=== PATIENT | male | born 1950 | race Caucasian/White ===

== ENCOUNTER → 2016-10-10 | Outpatient (CLI) | payer BC, OTHER ==
[~2016-10-10] VITALS: Ht 190.5 cm; Wt 131.5 kg
[~2016-10-10] MED LIST: ALLEGRA ALLERG180 MG PO; ASPIR 8181 M1 PO; AVAPRO300 MG PO; BYETTA PEN 11 PENIN2 SUBQ; CO Q-10100 MG PO; COENZYME Q10 PO; DEMADEX20 MG PO; DIOVAN320 MG PO; ECONAZOLE NITRA85 GM TOP; ESTER-C 1,0001 EACH PO; FISH OIL 1,001000 M2 PO; FLOMAX0.4 MG PO; GLUCOPHAGE XR500 MG PO; GLUCOPHAGE1000 MG PO; K-DUR 20 MEQ T20 MEQ PO; MAXZIDE-25 MG1 EACH PO; METAMUCIL PAC1 UDPKT; MILK THISTLE200 M1 PO; OMEPRAZOLE20 MG PO; PRAVACHOL40 MG PO; PROSCAR 5MG TABL5 MG PO; RAPAFLO8 MG PO; ROSUVASTATIN CA20 MG PO; VERAPAMIL ER180 MG PO; VITAMIN D1000 UNI1 PO; VITAMINC500 PO; [UNRECOGNIZED DRUG - REMARK]
--- NOTE | ~2016-10-10 | P ---
[facility] [place] [address] PROCEDURE REPORT Name: LAURO THRASHER Room #: REG CL Juvenal.#: [id number] Admission: 10/10/16 Attend Phys: Americo Vasquez Discharge: Date of : 46 Report #: [id number] THIS REPORT FOR: //name// CC: Americo Kovacs MD DATE OF SERVICE: 10/10/2016 PROCEDURE PERFORMED: Upper endoscopy with biopsies and esophageal dilation. HISTORY OF PRESENT ILLNESS: The patient is a 65-year-old male with a history of Montilla's esophagus who has undergone HALO ablation in the past for low-grade dysplasia. His last upper endoscopy was performed 04/04/2015. Biopsies at that time were negative for Montilla's. He is taking Prilosec on a daily basis. He is now reporting dysphagia. Plan is for EGD with dilation. DESCRIPTION OF PROCEDURE: The risks and benefits of the procedure were explained to the patient, those risks including but not limited to bleeding, perforation, the risk of sedation. He understood these risks and gave informed consent. Sedation was given using propofol and ketamine per anesthesia. Next, using a standard Click With Me Nown upper endoscope, the scope was placed in the patient's mouth and advanced under direct vision through the esophagus, stomach and into the second portion of the duodenum. The upper and mid esophagus was normal in appearance. In the distal esophagus, there was grade C erosive esophagitis, unable to tell if there is Montilla's due to the ulceration. At the GE junction, there was a mild narrowing with some scarring as well. The scope passed through this area without difficulty. Upon entering the stomach, a small hiatal hernia was noted. Overall, the gastric mucosa was normal in the fundus and upper body, mild gastritis was noted in the antrum with several small erosions. Biopsies were obtained to rule out the possibility of H. pylori. The pylorus was normal and patent. The duodenal bulb, first and second portion were all normal. The scope was then brought back up into the patient's stomach and a Savary guidewire was inserted through the scope, leaving the guidewire in place as the scope was withdrawn. Next, a 48-[place] Savary dilation of the esophagus was then performed without difficulty. The wire and dilator removed. The scope was reintroduced into the patient's stomach. There was no evidence of mucosal tear after dilation. The scope was then withdrawn and the procedure terminated. The patient tolerated the procedure well. IMPRESSION: 1. Grade C erosive esophagitis. 2. Small hiatal hernia. 3. Mild gastritis with a few erosions. 4. Otherwise, normal upper endoscopy. [address] [address] PROCEDURE REPORT Name: LAURO THRASHER Room #: REG BRISEYDA Sandhu#: [id number] Admission: 10/10/16 Attend Phys: Americo Vasquez Discharge: Date of : 46 Report #: [id number] RECOMMENDATIONS: 1. Await biopsy results. 2. Observe the patient post-dilation. 3. Despite the patient being on daily Prilosec, he has grade C erosive esophagitis, therefore, we will increase to b.i.d. dose and then consider Carafate as well. Would recommend repeating an upper endoscopy in approximately 2 months time to rule out the possibility of recurrent Montilla's. Thank you for allowing me to participate in his care. <ELECTRONICALLY SIGNED> By: Americo Hadley MD 10/12/16 0936 [id number] [id number] Americo Hadley MD /nt
--- NOTE | ~2016-10-10 | S ---
[facility] [place] [address] [place] [address] SURGICAL PATH RPT PROCEDURE Name: LAURO SEGURA Room #: REG CLI M.R.#: [id number] Admission: 10/10/16 Date of : 46 Discharge: Report #: [id number] Path Case #: [id number] PATHOLOGY REPORT COLLECTION DATE: 10/10/2016 RECEIVED DATE: 10/10/2016 SUBMITTING PHYS: Dr. Americo Hadley OTHER PHYS: Dr. Sukhjinder Kovacs SPECIMEN(S) RECEIVED: A.Bx of gastritis * * * * * * * * * * * * FINAL DIAGNOSIS: Gastric mucosa, gastritis, endoscopic biopsy: - Mild reactive gastropathy. - Negative for intestinal metaplasia or atrophy. - Negative for Helicobacter pylori. COMMENT: Helicobacter pylori immunohistochemical stain performed on block A1-negative. (IUV:mgr; d/t: 10/11/16) PATHOLOGIST: Jeannie Winston M.D. REPORT ELECTRONICALLY SIGNED BY: Jeannie Winston M.D. DATE/TIME: 10/11/2016 15:48 * * * * * * * * * * * * GROSS PATHOLOGY: Received in formalin labeled "Lauro Segura and BX of gastritis," are 3 segments of gabriel soft tissue measuring 1.1 x 0.3 x 0.2 cm in aggregate dimensions and ranging from 0.2 to 0.6 cm in maximum dimension. The specimen is submitted entirely in cassette A1. (TTL; 10/10/2016) CLINICAL HISTORY: Montilla's esophagus, vomiting INITIAL CPT CODE(S): A; 76205, 69736 Professional services performed by [facility] at [facility] [address], [place] [address] [facility] [address] [place] [address] SURGICAL PATH RPT PROCEDURE Name: LAURO SEGURA Room #: REG BRISEYDA Sandhu#: [id number] Admission: 10/10/16 Date of : 46 Discharge: Report #: [id number] Path Case #: [id number] Technical services performed by [facility] at [address] [place] [address], [facility] [address] [place] [address]. [facility] [address] [address] PHONE: [phone] DIRECTOR: Archie Saab M.D. * * * END OF REPORT * * *
--- NOTE | ~2016-10-10 | EKG ---
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
== END ==
LOC: GI 07:28
DX: K22.10 Ulcer of esophagus without bleeding (principal); K44.9 Diaphragmatic hernia without obstruction or gangrene; K29.60 Other gastritis without bleeding; K31.9 Disease of stomach and duodenum, unspecified; K21.9 Gastro-esophageal reflux disease without esophagitis; I10 Essential (primary) hypertension; E78.00 Pure hypercholesterolemia, unspecified; I49.9 Cardiac arrhythmia, unspecified; E11.9 Type 2 diabetes mellitus without complications; N40.0 Benign prostatic hyperplasia without lower urinary tract symptoms
CPT/HCPCS: 62110; 62900

== ENCOUNTER 2017-03-13 16:30 | Inpatient (IN) | payer BC, OTHER ==
[~2017-03-13] VITALS: Ht 185.4 cm; Wt 136.5 kg
--- NOTE | ~2017-03-13 | H ---
[facility] [place] [address] [place] [address] HISTORY AND PHYSICAL Name: LAURO THRASHER Room #: 311-P [facility] IN M.R.#: [id number] Admission: 03/13/17 Attend Phys: Sukhjinder Kovacs MD Discharge: Date of : 46 Report #: [id number] THIS REPORT FOR: //name// CC: Sukhjinder Kovacs DATE OF SERVICE: 03/13/2017 CHIEF COMPLAINT: Myalgias, fever, weakness, nausea, and intractable diarrhea. HISTORY OF PRESENT ILLNESS: The patient's illness began approximately 03/09/2017, with diffuse joint aches and swelling. He developed a fever at home. He had been drinking quite a bit of water. Then, yesterday he began having perfuse watery green brown liquid stools throughout the day. This morning, the diarrhea started up again. He also has had a persistent nonproductive cough. He has myalgias, nausea, and profound malaise. He got an allergy shot earlier this morning. He has had no recent antibiotic exposure. PAST MEDICAL HISTORY: Significant for type 2 diabetes, obesity, coronary artery disease with a negative stress echocardiogram on 12/31/2016. He has hypertension and hyperlipidemia. He has a history of Montilla's esophagitis and has had an ablation of his Montilla's esophagitis. He had grade C esophagitis 10/10/2016, on once daily PPI that was increased to twice daily PPI with a negative upper endoscopy done 12/10/2016 and Savary dilatation to 51-Hebrew the same day. A colonoscopy was done 01/04/2017, with the removal of several polyps for which the pathology report is not immediately available, and follow up colonoscopy is due in 5 years. 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 He has a diagnosis of sleep apnea on a sleep study at [facility], somewhat inconclusive with limited amount of sleep on that study. There is a history of peripheral vascular disease, carotid atherosclerosis and a known right bundle branch block. He has had a variable PSA. A CPAP machine was recommended 06/23/2012, by Dr. Torres. He has had an appendectomy, knee surgeries and a cataract extraction. He has BPH. He was a bone marrow donor in 1979. CURRENT MEDICATIONS: Metformin extended release 500 mg 3 times daily, torsemide 20 mg twice daily from Dr. Belcher, potassium chloride 20 mEq twice daily, Ashleigh 180 mg daily, triamterene/hydrochlorothiazide 37.5/25 mg once daily, verapamil extended release 180 mg daily, Valsartan 320 mg daily, rosuvastatin, generic Crestor 20 mg daily; finasteride 5 mg once daily, tamsulosin 0.4 mg once daily, omeprazole 20 mg twice daily, low-dose aspirin daily, milk thistle [address] [address] HISTORY AND PHYSICAL Name: PRICELAURO Room #: 311-P [facility] IN M.R.#: [id number] Admission: 03/13/17 Attend Phys: Sukhjinder Kovacs MD Discharge: Date of : 46 Report #: [id number] daily, vitamin C 1000 mg daily, Centrum 1 tablet daily, fish oil 7200 mg daily, vitamin D 5000 international units daily, psyllium husk was recently discontinued, econazole nitrate cream has been applied to his toe nails for onychomycosis and after 5 years the toe nails are now clear, Flonase nose spray as needed, a nasal wash daily for his sinuses, Victoza 1.2 mg daily, 1 iron pill, daily turmeric and black pepper and MiraLax 1 capsule daily. ALLERGIES: None known to any medications. There is an "old history of pentothal allergies." FAMILY HISTORY: Noncontributory. REVIEW OF SYSTEMS: Negative except that in the HPI. O: GENERAL: Examination shows a 66-year-old male, in moderate distress. He appears ill. HEENT: Shows quite dry oral mucosa. NECK: Negative. LUNGS: Clear except for rhonchi in the right lower lobe posteriorly. ABDOMEN: Obese and soft. There is; however, diffuse tenderness present throughout all 4 quadrants. EXTREMITIES: There is only a trace edema present in the lower extremities. NEUROLOGIC: Screening neurological examination is intact. A: 1. Dehydration. 2. Diarrheal illness and fluid losses. 3. Fever. 4. Diffuse myalgias and arthralgias. 5. History of hypertension with low blood pressure now of 109/71. 6. Type 2 diabetes. 7. Hyperlipidemia. P: With his clinical findings of dehydration and his low resistance to serious illnesses from his diabetes and his low resistance to respiratory illnesses from his severe morbid obesity and limited lung excursions and his diffuse abdominal pain and history of taking Victoza, and hospitalization with intravenous fluid replacement, laboratory testing and close clinical monitoring is indicated. [facility] [address] [place] [address] HISTORY AND PHYSICAL Name: LAURO THRASHER Room #: 311-P ADM IN MLiza.#: [id number] Admission: 03/13/17 Attend Phys: Sukhjinder Kovacs MD Discharge: Date of : 46 Report #: [id number] Because of his abdominal pain and diarrhea, he is placed on clear liquids at this time. By: 1525 1648 Sukhjinder Kovacs MD /nt
[2017-03-13 16:30] VITALS: BP 120/65; BP 124/74
[2017-03-13] MEDS ORDERED: TURMERIC COMPL1 EACH PO (17:56)
[2017-03-13] MEDS ORDERED: VICTOZA0.6 MG/0.1 SUBQ (17:57)
[2017-03-13] MEDS ORDERED: ALLEGRA ALLERG180 MG PO (17:59)
[2017-03-13] MEDS ORDERED: CRESTOR10 MG PO (18:01)
[2017-03-13] MEDS ORDERED: FLOMAX0.4 MG PO (18:02)
[2017-03-13] MEDS ORDERED: FLONASE 0.05%50 MCG NASAL (18:03)
[2017-03-13 18:25] LABS: HEMATOCRIT 39.7 % (42.0-52.0); HEMOGLOBIN 13.8 gm/dL (14.0-18.0); MCH 30.4 pg (26.0-34.0); MCHC 34.9 g/dL (28.0-37.0); MCV 87.1 fL (80.0-100.0); PLATELET COUNT 222 thou/uL (150-400); RBC 4.56 mil/uL (4.50-6.00); RDW 14.4 % (10.5-14.5); WBC 10.4 thou/uL (4.0-11.0)
[2017-03-13 18:31] LABS: MANUAL DIFF YES
[2017-03-13 18:36] LABS: CALCIUM 9.2 mg/dL (8.5-10.1); CREATININE 1.2 mg/dL (0.7-1.3); POTASSIUM 3.5 mmol/L (3.5-5.1)
[2017-03-13 18:41] LABS: ALBUMIN 3.7 g/dL (3.4-5.0); TOTAL BILIRUBIN 0.7 mg/dL (<0.1-1.0); TOTAL PROTEIN 7.1 g/dL (6.4-8.2)
[2017-03-13 18:56] LABS: ABSOLUTE NEUTROPHILS 8.6 thou/uL (1.4-8.2); ANISOCYTOSIS 2+; TOTAL CELL COUNT 100
[2017-03-13 18:57] LABS: POLYCHROMASIA SLIGHT
[2017-03-13 19:07] VITALS: BP 123/75
[2017-03-14] VITALS: BP 96/52
[2017-03-14 03:55] LABS: URINE BILIRUBIN NEGATIVE (Negative); URINE BLOOD NEGATIVE (Negative); URINE COLOR YELLOW; URINE GLUCOSE-RANDOM* NEGATIVE (Negative); URINE KETONES NEGATIVE (Negative); URINE LEUKOCYTES-REFLEX NEGATIVE (Negative); URINE PROTEIN (DIPSTICK) NEGATIVE (Negative); URINE SPECIFIC GRAVITY 1.015 (1.003-1.035); URINE UROBILINOGEN 0.2 E.U./dl (0.2-1.0)
[2017-03-14 04:06] VITALS: BP 104/54
[2017-03-14 05:52] LABS: HEMATOCRIT 34.5 % (42.0-52.0); HEMOGLOBIN 12.1 gm/dL (14.0-18.0); MCH 30.6 pg (26.0-34.0); MCHC 35.1 g/dL (28.0-37.0); MCV 87.2 fL (80.0-100.0); RBC 3.95 mil/uL (4.50-6.00); RDW 14.5 % (10.5-14.5); WBC 5.1 thou/uL (4.0-11.0)
[2017-03-14 05:59] LABS: CALCIUM 8.3 mg/dL (8.5-10.1); CREATININE 0.9 mg/dL (0.7-1.3); POTASSIUM 3.3 mmol/L (3.5-5.1)
[2017-03-14 08:00] VITALS: BP 103/62
[2017-03-14 15:52] VITALS: BP 97/55
[2017-03-14 21:20] VITALS: BP 92/39
[2017-03-15 00:10] VITALS: BP 105/61
[2017-03-15 02:11] LABS: GLYCOHEMOGLOBIN (HGB A1C) 5.1 % (4.8-5.6)
[2017-03-15 05:32] VITALS: BP 112/62
[2017-03-15 06:34] LABS: ALBUMIN 2.9 g/dL (3.4-5.0); CALCIUM 8.4 mg/dL (8.5-10.1); POTASSIUM 3.9 mmol/L (3.5-5.1); TOTAL BILIRUBIN 0.5 mg/dL (<0.1-1.0); TOTAL PROTEIN 6.1 g/dL (6.4-8.2)
[2017-03-15 07:01] LABS: HEMATOCRIT 34.4 % (42.0-52.0); HEMOGLOBIN 11.7 gm/dL (14.0-18.0); MCH 30.2 pg (26.0-34.0); MCHC 34.2 g/dL (28.0-37.0); MCV 88.3 fL (80.0-100.0); PLATELET COUNT 173 thou/uL (150-400); RBC 3.89 mil/uL (4.50-6.00); RDW 14.5 % (10.5-14.5); WBC 4.9 thou/uL (4.0-11.0)
[2017-03-15 08:00] VITALS: BP 114/70
[2017-03-15 09:04] LABS: MANUAL DIFF YES
[2017-03-15 09:34] LABS: ABSOLUTE NEUTROPHILS 2.9 thou/uL (1.4-8.2); ANISOCYTOSIS SLIGHT; TOTAL CELL COUNT 100
[2017-03-15] MEDS ORDERED: LOPERAMIDE 2 MG2 M1 PO (10:54)
[2017-03-15 12:14] VITALS: BP 114/70
== END 2017-03-15 13:30 | disposition home or self-care (01) | DRG 641 ==
LOC: 3N 16:30 → ENTRNSPT 03-15 13:23 → EDTRNSPTSTS 03-15 13:27 → 3N 03-15 13:30
PROVIDERS: Internal Medicine
DX: E86.0 Dehydration (principal); E11.9 Type 2 diabetes mellitus without complications; E66.9 Obesity, unspecified; Z68.39 Body mass index [BMI] 39.0-39.9, adult; I25.10 Atherosclerotic heart disease of native coronary artery without angina pectoris; I10 Essential (primary) hypertension; E78.5 Hyperlipidemia, unspecified; E11.51 Type 2 diabetes mellitus with diabetic peripheral angiopathy without gangrene; R19.7 Diarrhea, unspecified; M79.1 Myalgia; Z79.899 Other long term (current) drug therapy
CPT/HCPCS: 10795

== ENCOUNTER → 2019-08-24 | Outpatient (CLI) | payer BC, OTHER ==
[~2019-08-24] MED LIST changes: +CRESTOR10 MG PO; +FLONASE 0.05%50 MCG NASAL; +LOPERAMIDE 2 MG2 M1 PO; +TURMERIC COMPL1 EACH PO; +VICTOZA0.6 MG/0.1 SUBQ
== END ==
LOC: SJCVCIMAG 12:14
DX: Z01.810 Encounter for preprocedural cardiovascular examination (principal); I45.2 Bifascicular block; I25.10 Atherosclerotic heart disease of native coronary artery without angina pectoris; I10 Essential (primary) hypertension; E78.5 Hyperlipidemia, unspecified; Z87.891 Personal history of nicotine dependence; Z79.899 Other long term (current) drug therapy

== ENCOUNTER → 2019-10-01 | Outpatient (CLI) | payer BC, OTHER | LOC: SJCVC 14:57 | DX: I25.10 Atherosclerotic heart disease of native coronary artery without angina pectoris (principal); I10 Essential (primary) hypertension; I65.23 Occlusion and stenosis of bilateral carotid arteries; E78.2 Mixed hyperlipidemia; I45.10 Unspecified right bundle-branch block; Z82.49 Family history of ischemic heart disease and other diseases of the circulatory system; Z90.49 Acquired absence of other specified parts of digestive tract; Z79.82 Long term (current) use of aspirin; Z79.899 Other long term (current) drug therapy ==

== ENCOUNTER → 2020-01-06 | Outpatient (CLI) | payer BC, OTHER | LOC: SJCVC 16:14 | PROVIDERS: ATTEND Internal Medicine | DX: I45.10 Unspecified right bundle-branch block (principal); R94.31 Abnormal electrocardiogram [ECG] [EKG]; I25.10 Atherosclerotic heart disease of native coronary artery without angina pectoris; I10 Essential (primary) hypertension; I65.23 Occlusion and stenosis of bilateral carotid arteries; E78.2 Mixed hyperlipidemia; Z79.82 Long term (current) use of aspirin; Z79.899 Other long term (current) drug therapy; Z82.49 Family history of ischemic heart disease and other diseases of the circulatory system; Z87.891 Personal history of nicotine dependence ==

== ENCOUNTER → 2020-06-16 | Outpatient (CLI) | payer BC, OTHER | LOC: SJCVC 15:24 | PROVIDERS: ATTEND Internal Medicine | DX: I45.10 Unspecified right bundle-branch block (principal); R94.31 Abnormal electrocardiogram [ECG] [EKG]; I25.10 Atherosclerotic heart disease of native coronary artery without angina pectoris; I50.32 Chronic diastolic (congestive) heart failure; I11.0 Hypertensive heart disease with heart failure; I65.23 Occlusion and stenosis of bilateral carotid arteries; E78.5 Hyperlipidemia, unspecified ==

== ENCOUNTER → 2020-12-22 | Outpatient (CLI) | payer BC, OTHER | LOC: SJCVC 15:16 | PROVIDERS: ATTEND Internal Medicine | DX: R94.31 Abnormal electrocardiogram [ECG] [EKG] (principal); I45.10 Unspecified right bundle-branch block; I49.3 Ventricular premature depolarization; I25.10 Atherosclerotic heart disease of native coronary artery without angina pectoris; I11.0 Hypertensive heart disease with heart failure; I50.32 Chronic diastolic (congestive) heart failure; I49.1 Atrial premature depolarization; E78.5 Hyperlipidemia, unspecified; I65.23 Occlusion and stenosis of bilateral carotid arteries; Z79.82 Long term (current) use of aspirin; Z79.84 Long term (current) use of oral hypoglycemic drugs; Z79.899 Other long term (current) drug therapy; Z87.891 Personal history of nicotine dependence; Z72.89 Other problems related to lifestyle ==